=== PATIENT | female | born 1985 | race Caucasian/White ===

== ENCOUNTER 2019-08-02 09:16 | Emergency (ER) | payer MEDICAID ==
[~2019-08-02] VITALS: Ht 172.7 cm; Wt 58.7 kg
[2019-08-02 09:31] VITALS: BP 117/78
[2019-08-02 11:05] LABS: URINE HCG NEGATIVE (NEG)
[2019-08-02 11:07] LABS: CLARITY,URINE CLEAR (Clear); COLOR,URINE STRAW (Yellow); GLUCOSE, URINE NEGATIVE (Neg); KETONES,URINE NEGATIVE (Neg); LEUKOCYTE ESTERASE ,URINE NEGATIVE (Neg); NITRITES, URINE NEGATIVE (Neg); OCCULT BLOOD,URINE NEGATIVE (Neg); PROTEIN,URINE NEGATIVE (Neg); UROBILINOGEN,URINE 0.2 E.U/dL (0.2-1.0)
[2019-08-02 11:13] LABS: UA COLLECTION TYPE CLN CATCH MIDSTREAM
[2019-08-02] MEDS ORDERED: azithromycin 250mg tablet PO ONE (11:50)
[2019-08-02] MEDS ORDERED: CefTRIAXone 250MG IM Kit w/LIDOcaine IM ONE (11:50)
--- NOTE | 2019-08-02 11:57 | NUR ---
patient refused medications
== END 2019-08-02 11:59 | disposition home or self-care (01) ==
LOC: ER 09:17
DX: N89.8 Other specified noninflammatory disorders of vagina (principal); Z88.0 Allergy status to penicillin
CPT/HCPCS: 36415; 81003; 81025; 87491; 87591; 99283; J0696